=== PATIENT | male | born 1995 ===

== ENCOUNTER 2021-02-04 15:56 | Emergency (ER) | payer SELFPAY ==
[2021-02-04 16:03] VITALS: BP 128/68
[2021-02-04] MEDS ORDERED: PANTOPRAZOLE 40 MG INJ IV ONE (18:33)
[2021-02-04] MEDS ORDERED: ONDANSETRON 4 MG/2 ML INJ IV ONE (18:33)
[2021-02-04] MEDS ORDERED: SODIUM CHLORIDE 0.9% 1000 ML 1,000 ML IV ONE (18:33)
--- NOTE | 2021-02-04 18:35 | Event Note ---
ED Screening Note Date of service: 02/04/21 Time: 18:34 ED Screening Note: Patient presents with complaints of hematemesis, upper abdominal pain, and chest pain x5 days Patient unsure of history of PUD, however states he has had hematemesis in the past He is not currently on any medication or following with GI Patient rates pain as a 7/10 in severity He denies coffee-ground emesis This initial assessment/diagnostic orders/clinical plan/treatment(s) is/are subject to change based on patients health status, clinical progression and re- assessment by fellow clinical providers in the ED. Further treatment and workup at subsequent clinical providers discretion. Patient/guardian urged not to elope from the ED as their condition may be serious if not clinically assessed and managed. Initial orders include: Labs Chest x-ray Meds
[2021-02-04 18:51] LABS: Basophils # (Auto) 0.2 K/mm3 (0.0-0.1); Basophils % (Auto) 1.8 % (0.0-1.8); Eosinophils # (Auto) 0.2 K/mm3 (0.0-0.4); Eosinophils % (Auto) 2.2 % (0.0-4.3); Lymphocytes # (Auto) 2.2 K/mm3 (1.2-5.4); Lymphocytes % (Auto) 25.3 % (13.4-35.0); Mean Corpuscular HGB Conc 29 % (32-34); Monocytes # (Auto) 0.8 K/mm3 (0.0-0.8); Monocytes % (Auto) 9.3 % (0.0-7.3); Platelet Count 440 K/mm3 (140-440); Red Blood Count 4.66 M/mm3 (3.65-5.03)
[2021-02-04 18:52] LABS: Hematocrit 27.3 % (35.5-45.6); Hemoglobin 7.8 gm/dl (11.8-15.2); Mean Corpuscular Volume 59 fl (84-94)
[2021-02-04 19:02] LABS: INR 0.92 (0.87-1.13)
[2021-02-04 19:03] LABS: Partial Thromboplastin Time 24.1 Sec. (24.2-36.6)
[2021-02-04 19:10] LABS: Alanine Aminotransferase 19 units/L (7-56); Albumin 3.7 g/dL (3.9-5); BUN/Creatinine Ratio 14; Blood Urea Nitrogen 13 mg/dL (9-20); Calcium 8.3 mg/dL (8.4-10.2); Hemolysis Index 9
--- NOTE | 2021-02-04 19:18 | XRay Report ---
CHEST 2 VIEWS INDICATION: chest pain. COMPARISON: None. FINDINGS: Support devices: None. Heart: Within normal limits. Lungs/Pleura: No acute air space or interstitial disease. No significant pleural effusion. IMPRESSION: No acute findings. Signer Name: Austin Suarez MD Signed: 02/04/2021 7:13 PM Workstation Name: [id number]
== END 2021-02-04 20:55 | disposition left against medical advice (07) ==
LOC: ED 15:56
DX: K92.0 Hematemesis (principal); R10.10 Upper abdominal pain, unspecified; R07.9 Chest pain, unspecified; Z53.21 Procedure and treatment not carried out due to patient leaving prior to being seen by health care provider
CPT/HCPCS: 36415; 71046; 80053; 83690; 85025; 85610; 85730; 96361; 96374; 96375; C9113; J2405; J7030